=== PATIENT | female | born 1945 | race Caucasian/White ===

== ENCOUNTER 2018-10-20 14:07 | Inpatient (IN) | payer MEDICARE, BC ==
[2018-10-20 15:35] LABS: ADD UMIC NO; UR ASCORBIC ACID NEGATIVE (NEGATIVE); UR BILIRUBIN (Dip) NEGATIVE (NEGATIVE); UR BLOOD (Dip) NEGATIVE (NEGATIVE); UR CLARITY CLEAR (CLEAR); UR COLOR STRAW (YELLOW); UR GLUCOSE (Dip) NEGATIVE (NEGATIVE); UR KETONES (Dip) NEGATIVE (NEGATIVE); UR LEUKOCYTE ESTERASE (Dip) NEGATIVE Leu/ul (NEGATIVE); UR NITRITE (Dip) NEGATIVE (NEGATIVE); UR SPECIFIC GRAVITY (Dip) 1.008 (1.003-1.030); UR TOTAL PROTEIN (Dip) NEGATIVE (NEGATIVE); UR UROBILINOGEN (Dip) NEGATIVE (NEGATIVE)
[2018-10-20] MEDS ORDERED: LACTULOSE 30ML CUP PO (16:00)
[2018-10-20] MEDS: SPIRONOLACTONE 50 MG TAB PO (18:41)
[2018-10-20] MEDS: LEVETIRACETAM 500 MG TAB PO (20:42)
[2018-10-20] MEDS: DEXAMETHASONE 2 MG TAB PO (20:42)
[2018-10-20] MEDS: DOCUSATE SODIUM 100 MG CAP PO (20:42)
[2018-10-20] MEDS: GABAPENTIN 400 MG CAP PO (20:42)
[2018-10-21] MEDS: SPIRONOLACTONE 50 MG TAB PO ×2 (06:46→20:13)
[2018-10-21 07:17] LABS: ADD MAN DIFF? NO
[2018-10-21 07:20] LABS: WHITE BLOOD COUNT 12.5 10^3/ul (4.8-10.8)
[2018-10-21 07:20] LABS: BASOPHILS % 0.2 % (0.0-2.0); EOSINOPHILS % 0.2 % (0.0-7.0); HEMATOCRIT 47.1 % (37.0-47.0); LYMPHOCYTES # 1.9 10^3/ul (0.8-2.9); LYMPHOCYTES % 15.6 % (15.0-51.0); MEAN CORPUSCULAR HEMOGLOBIN 31.1 pg (29.0-33.0); MEAN CORPUSCULAR VOLUME 91.5 fl (82.0-101.0); MEAN PLATELET VOLUME 9.2 fl (7.4-10.4); MONOCYTE # 0.7 10^3/ul (0.3-0.9); MONOCYTES % 5.3 % (0.0-11.0); NEUTROPHIL # 9.6 10^3/ul (1.6-7.5); NEUTROPHILS % 76.7 % (39.0-77.0); PLATELET COUNT 300 10^3/UL (140-415); RED BLOOD COUNT 5.15 10^6/ul (4.20-5.40); RED CELL DISTRIBUTION WIDTH 12.8 % (11.5-14.5)
[2018-10-21 07:51] LABS: ALANINE AMINOTRANSFERASE 44 IU/L (13-69); ALBUMIN 4.1 g/dl (3.3-4.9); ALBUMIN/GLOBULIN RATIO 1.51; ALKALINE PHOSPHATASE 55 IU/L (42-121); ANION GAP 13 (5-13); ASPARTATE AMINO TRANSFERASE 30 IU/L (15-46); BILIRUBIN,INDIRECT 1.1 mg/dl (0-1.1); BILIRUBIN,TOTAL 1.1 mg/dl (0.2-1.3); BLOOD UREA NITROGEN 29 mg/dl (7-20); CALCIUM 9.7 mg/dl (8.4-10.2); CARBON DIOXIDE 30 mmol/L (21-31); CHLORIDE 93 mmol/L (97-110); CREATININE 0.95 mg/dl (0.44-1.00); GLUCOSE 99 mg/dl (70-220); POTASSIUM 4.5 mmol/L (3.5-5.1); SODIUM 136 mmol/L (135-144); TOTAL PROTEIN 6.8 g/dl (6.1-8.1)
[2018-10-21] MEDS: ACETAMINOPHEN 325 MG TAB PO ×2 (08:13→19:22)
[2018-10-21] MEDS ORDERED: FAMOTIDINE 20 MG TAB PO ×2 (09:00→09:30)
[2018-10-21] MEDS: FAMOTIDINE 20 MG TAB PO ×2 (09:39→20:13)
[2018-10-21] MEDS: DEXAMETHASONE 2 MG TAB PO ×2 (09:39→20:13)
[2018-10-21] MEDS: LEVETIRACETAM 500 MG TAB PO ×2 (09:40→20:13)
[2018-10-21] MEDS: METOPROLOL (XL) 50 MG TAB PO (09:40)
[2018-10-21] MEDS: SENNA TAB PO (09:40)
[2018-10-21] MEDS: GABAPENTIN 400 MG CAP PO ×2 (09:41→20:13)
[2018-10-21] MEDS: DOCUSATE SODIUM 100 MG CAP PO ×2 (09:41→20:13)
[2018-10-21] MEDS: FUROSEMIDE 40 MG TAB PO (09:41)
[2018-10-21] MEDS: TRINTELLIX 10 MG PO (09:41)
[2018-10-21] MEDS: ANASTROZOLE 1 MG TAB PO (09:46)
[2018-10-21] MEDS: ENOXAPARIN 40 MG/0.4 ML SYG SC (09:48)
[2018-10-22 06:13] LABS: ADD MAN DIFF? NO
[2018-10-22 06:14] LABS: WHITE BLOOD COUNT 12.4 10^3/ul (4.8-10.8)
[2018-10-22 06:14] LABS: BASOPHILS % 0.1 % (0.0-2.0); EOSINOPHILS % 0.1 % (0.0-7.0); HEMATOCRIT 44.4 % (37.0-47.0); HEMOGLOBIN 15.4 g/dl (12.0-16.0); LYMPHOCYTES # 1.1 10^3/ul (0.8-2.9); LYMPHOCYTES % 8.5 % (15.0-51.0); MEAN CORPUSCULAR HEMOGLOBIN 31.5 pg (29.0-33.0); MEAN CORPUSCULAR HGB CONC 34.7 g/dl (32.0-37.0); MEAN CORPUSCULAR VOLUME 90.8 fl (82.0-101.0); MEAN PLATELET VOLUME 8.8 fl (7.4-10.4); MONOCYTE # 0.5 10^3/ul (0.3-0.9); MONOCYTES % 4.2 % (0.0-11.0); NEUTROPHIL # 10.7 10^3/ul (1.6-7.5); NEUTROPHILS % 85.7 % (39.0-77.0); PLATELET COUNT 231 10^3/UL (140-415); RED BLOOD COUNT 4.89 10^6/ul (4.20-5.40); RED CELL DISTRIBUTION WIDTH 12.9 % (11.5-14.5)
[2018-10-22] MEDS: SPIRONOLACTONE 50 MG TAB PO ×2 (06:19→17:03)
[2018-10-22 06:48] LABS: ANION GAP 9 (5-13); BLOOD UREA NITROGEN 30 mg/dl (7-20); CALCIUM 9.4 mg/dl (8.4-10.2); CARBON DIOXIDE 29 mmol/L (21-31); CHLORIDE 94 mmol/L (97-110); CREATININE 0.82 mg/dl (0.44-1.00); GLUCOSE 102 mg/dl (70-220); MAGNESIUM 2.4 mg/dl (1.7-2.5); PHOSPHORUS 3.7 mg/dl (2.5-4.9); POTASSIUM 4.4 mmol/L (3.5-5.1); SODIUM 132 mmol/L (135-144)
[2018-10-22] MEDS: SENNA TAB PO (08:35)
[2018-10-22] MEDS: DOCUSATE SODIUM 100 MG CAP PO ×2 (08:36→20:23)
[2018-10-22] MEDS: FUROSEMIDE 40 MG TAB PO (08:37)
[2018-10-22] MEDS: LEVETIRACETAM 500 MG TAB PO ×2 (08:37→20:14)
[2018-10-22] MEDS: DEXAMETHASONE 2 MG TAB PO ×2 (08:37→20:14)
[2018-10-22] MEDS: GABAPENTIN 400 MG CAP PO ×2 (08:40→20:14)
[2018-10-22] MEDS: TRINTELLIX 10 MG PO (08:40)
[2018-10-22] MEDS: ENOXAPARIN 40 MG/0.4 ML SYG SC (08:41)
[2018-10-22] MEDS: METOPROLOL (XL) 50 MG TAB PO (09:00)
[2018-10-22] MEDS: ANASTROZOLE 1 MG TAB PO (09:20)
[2018-10-22] MEDS: FAMOTIDINE 20 MG TAB PO ×2 (09:23→20:14)
[2018-10-22] MEDS: ACETAMINOPHEN 325 MG TAB PO (20:23)
[2018-10-23] MEDS: SPIRONOLACTONE 50 MG TAB PO ×2 (06:10→18:00)
[2018-10-23] MEDS: LEVETIRACETAM 500 MG TAB PO ×2 (09:08→20:41)
[2018-10-23] MEDS: SENNA TAB PO (09:09)
[2018-10-23] MEDS: DEXAMETHASONE 2 MG TAB PO ×2 (09:10→20:41)
[2018-10-23] MEDS: FAMOTIDINE 20 MG TAB PO ×2 (09:10→20:42)
[2018-10-23] MEDS: DOCUSATE SODIUM 100 MG CAP PO ×2 (09:10→20:41)
[2018-10-23] MEDS: GABAPENTIN 400 MG CAP PO ×2 (09:10→20:42)
[2018-10-23] MEDS: FUROSEMIDE 40 MG TAB PO (09:15)
[2018-10-23] MEDS: METOPROLOL (XL) 50 MG TAB PO (09:16)
[2018-10-23] MEDS: TRINTELLIX 10 MG PO (09:16)
[2018-10-23] MEDS: ENOXAPARIN 40 MG/0.4 ML SYG SC (09:20)
[2018-10-23] MEDS: ANASTROZOLE 1 MG TAB PO (09:21)
[2018-10-23] MEDS: ACETAMINOPHEN 325 MG TAB PO (20:42)
[2018-10-23 22:16] LABS: TIME 2155
[2018-10-23 22:17] LABS: SITE Right Upper Forearm
[2018-10-24] MEDS: SPIRONOLACTONE 50 MG TAB PO ×2 (06:38→18:11)
[2018-10-24 06:40] LABS: ADD MAN DIFF? NO
[2018-10-24 06:46] LABS: BASOPHILS % 0.3 % (0.0-2.0); EOSINOPHILS % 0.1 % (0.0-7.0); HEMATOCRIT 44.9 % (37.0-47.0); HEMOGLOBIN 15.5 g/dl (12.0-16.0); LYMPHOCYTES # 1.3 10^3/ul (0.8-2.9); LYMPHOCYTES % 13.4 % (15.0-51.0); MEAN CORPUSCULAR HEMOGLOBIN 31.3 pg (29.0-33.0); MEAN CORPUSCULAR HGB CONC 34.5 g/dl (32.0-37.0); MEAN CORPUSCULAR VOLUME 90.7 fl (82.0-101.0); MONOCYTE # 0.4 10^3/ul (0.3-0.9); MONOCYTES % 4.4 % (0.0-11.0); NEUTROPHILS % 80.6 % (39.0-77.0); PLATELET COUNT 244 10^3/UL (140-415); RED BLOOD COUNT 4.95 10^6/ul (4.20-5.40); RED CELL DISTRIBUTION WIDTH 12.6 % (11.5-14.5)
[2018-10-24 06:46] LABS: WHITE BLOOD COUNT 9.9 10^3/ul (4.8-10.8)
[2018-10-24 07:35] LABS: ANION GAP 12 (5-13); BLOOD UREA NITROGEN 29 mg/dl (7-20); CALCIUM 9.5 mg/dl (8.4-10.2); CARBON DIOXIDE 27 mmol/L (21-31); CHLORIDE 93 mmol/L (97-110); CREATININE 0.81 mg/dl (0.44-1.00); GLUCOSE 103 mg/dl (70-220); MAGNESIUM 2.4 mg/dl (1.7-2.5); PHOSPHORUS 3.3 mg/dl (2.5-4.9); POTASSIUM 4.4 mmol/L (3.5-5.1); SODIUM 132 mmol/L (135-144)
[2018-10-24] MEDS: LEVETIRACETAM 500 MG TAB PO ×2 (10:07→20:54)
[2018-10-24] MEDS: FUROSEMIDE 40 MG TAB PO (10:07)
[2018-10-24] MEDS: SENNA TAB PO (10:07)
[2018-10-24] MEDS: DOCUSATE SODIUM 100 MG CAP PO ×2 (10:07→20:53)
[2018-10-24] MEDS: DEXAMETHASONE 2 MG TAB PO ×2 (10:08→20:53)
[2018-10-24] MEDS: FAMOTIDINE 20 MG TAB PO ×2 (10:08→20:54)
[2018-10-24] MEDS: GABAPENTIN 400 MG CAP PO ×2 (10:08→20:54)
[2018-10-24] MEDS: METOPROLOL (XL) 50 MG TAB PO (10:09)
[2018-10-24] MEDS: TRINTELLIX 10 MG PO (10:09)
[2018-10-24] MEDS: ANASTROZOLE 1 MG TAB PO (10:18)
[2018-10-24] MEDS: ENOXAPARIN 40 MG/0.4 ML SYG SC (10:19)
[2018-10-24] MEDS: ACETAMINOPHEN 325 MG TAB PO (20:54)
[2018-10-25] MEDS: SPIRONOLACTONE 50 MG TAB PO ×2 (05:27→17:46)
[2018-10-25] MEDS: LEVETIRACETAM 500 MG TAB PO ×2 (09:21→21:39)
[2018-10-25] MEDS: GABAPENTIN 400 MG CAP PO ×2 (09:21→21:39)
[2018-10-25] MEDS: METOPROLOL (XL) 50 MG TAB PO (09:22)
[2018-10-25] MEDS: DEXAMETHASONE 2 MG TAB PO ×2 (09:22→21:39)
[2018-10-25] MEDS: DOCUSATE SODIUM 100 MG CAP PO ×2 (09:22→21:39)
[2018-10-25] MEDS: SENNA TAB PO (09:22)
[2018-10-25] MEDS: FUROSEMIDE 40 MG TAB PO (09:22)
[2018-10-25] MEDS: FAMOTIDINE 20 MG TAB PO ×2 (09:22→21:39)
[2018-10-25] MEDS: ANASTROZOLE 1 MG TAB PO (09:23)
[2018-10-25] MEDS: TRINTELLIX 10 MG PO (09:23)
[2018-10-25] MEDS: ENOXAPARIN 40 MG/0.4 ML SYG SC (09:24)
[2018-10-25] MEDS ORDERED: ONDANSETRON (ODT) 4 MG TAB ODT (11:00)
[2018-10-25] MEDS: ACETAMINOPHEN 325 MG TAB PO (21:40)
[2018-10-25 22:01] LABS: FORTY EIGHT HOUR READING 0 mm (0-9)
[2018-10-26] MEDS: SPIRONOLACTONE 50 MG TAB PO ×2 (06:19→17:25)
[2018-10-26] MEDS: SENNA TAB PO (09:12)
[2018-10-26] MEDS: DOCUSATE SODIUM 100 MG CAP PO ×2 (09:12→20:15)
[2018-10-26] MEDS: LEVETIRACETAM 500 MG TAB PO ×2 (09:13→20:15)
[2018-10-26] MEDS: DEXAMETHASONE 2 MG TAB PO ×2 (09:13→20:15)
[2018-10-26] MEDS: FUROSEMIDE 40 MG TAB PO (09:13)
[2018-10-26] MEDS: ANASTROZOLE 1 MG TAB PO (09:13)
[2018-10-26] MEDS: FAMOTIDINE 20 MG TAB PO ×2 (09:14→20:15)
[2018-10-26] MEDS: METOPROLOL (XL) 50 MG TAB PO (09:14)
[2018-10-26] MEDS: ENOXAPARIN 40 MG/0.4 ML SYG SC (09:15)
[2018-10-26] MEDS: TRINTELLIX 10 MG PO (09:15)
[2018-10-26] MEDS: GABAPENTIN 400 MG CAP PO ×2 (09:50→20:15)
[2018-10-26] MEDS: ACETAMINOPHEN 325 MG TAB PO (17:49)
[2018-10-26 22:32] LABS: SEVENTY TWO HOUR READING 0 mm (0-9)
[2018-10-27] MEDS: SPIRONOLACTONE 50 MG TAB PO ×2 (05:52→17:51)
[2018-10-27 06:54] LABS: ADD MAN DIFF? NO
[2018-10-27 07:02] LABS: WHITE BLOOD COUNT 6.3 10^3/ul (4.8-10.8)
[2018-10-27 07:02] LABS: BASOPHILS % 0.2 % (0.0-2.0); EOSINOPHILS % 0.3 % (0.0-7.0); HEMATOCRIT 43.1 % (37.0-47.0); HEMOGLOBIN 14.5 g/dl (12.0-16.0); LYMPHOCYTES # 1.2 10^3/ul (0.8-2.9); LYMPHOCYTES % 19.3 % (15.0-51.0); MEAN CORPUSCULAR HEMOGLOBIN 30.9 pg (29.0-33.0); MEAN CORPUSCULAR HGB CONC 33.6 g/dl (32.0-37.0); MEAN CORPUSCULAR VOLUME 91.9 fl (82.0-101.0); MEAN PLATELET VOLUME 8.9 fl (7.4-10.4); MONOCYTE # 0.3 10^3/ul (0.3-0.9); MONOCYTES % 5.2 % (0.0-11.0); NEUTROPHIL # 4.6 10^3/ul (1.6-7.5); NEUTROPHILS % 73.1 % (39.0-77.0); PLATELET COUNT 195 10^3/UL (140-415); RED BLOOD COUNT 4.69 10^6/ul (4.20-5.40); RED CELL DISTRIBUTION WIDTH 13.1 % (11.5-14.5)
[2018-10-27] MEDS: ANASTROZOLE 1 MG TAB PO ×2 (08:08→08:39)
[2018-10-27] MEDS: DEXAMETHASONE 2 MG TAB PO ×2 (08:08→20:05)
[2018-10-27] MEDS: METOPROLOL (XL) 50 MG TAB PO (08:08)
[2018-10-27] MEDS: DOCUSATE SODIUM 100 MG CAP PO ×2 (08:09→20:04)
[2018-10-27] MEDS: TRINTELLIX 10 MG PO (08:09)
[2018-10-27] MEDS: FAMOTIDINE 20 MG TAB PO ×2 (08:09→20:05)
[2018-10-27] MEDS: FUROSEMIDE 40 MG TAB PO (08:09)
[2018-10-27] MEDS: GABAPENTIN 400 MG CAP PO ×2 (08:09→20:05)
[2018-10-27] MEDS: SENNA TAB PO (08:09)
[2018-10-27] MEDS: LEVETIRACETAM 500 MG TAB PO ×2 (08:09→20:05)
[2018-10-27] MEDS: ENOXAPARIN 40 MG/0.4 ML SYG SC (08:10)
[2018-10-28] MEDS: SPIRONOLACTONE 50 MG TAB PO ×2 (05:45→16:51)
[2018-10-28] MEDS: ACETAMINOPHEN 325 MG TAB PO ×2 (05:52→21:49)
[2018-10-28] MEDS: TRINTELLIX 10 MG PO (08:40)
[2018-10-28] MEDS: DEXAMETHASONE 2 MG TAB PO ×2 (08:40→20:00)
[2018-10-28] MEDS: SENNA TAB PO (08:41)
[2018-10-28] MEDS: GABAPENTIN 400 MG CAP PO ×2 (08:41→20:00)
[2018-10-28] MEDS: FAMOTIDINE 20 MG TAB PO ×2 (08:41→20:00)
[2018-10-28] MEDS: LEVETIRACETAM 500 MG TAB PO ×2 (08:41→19:59)
[2018-10-28] MEDS: FUROSEMIDE 40 MG TAB PO (08:41)
[2018-10-28] MEDS: DOCUSATE SODIUM 100 MG CAP PO ×2 (08:41→19:59)
[2018-10-28] MEDS: ANASTROZOLE 1 MG TAB PO (08:43)
[2018-10-28] MEDS: ENOXAPARIN 40 MG/0.4 ML SYG SC (08:44)
[2018-10-28] MEDS: METOPROLOL (XL) 50 MG TAB PO (08:48)
[2018-10-28] MEDS: ONDANSETRON (ODT) 4 MG TAB ODT (16:50)
[2018-10-29] MEDS: SPIRONOLACTONE 50 MG TAB PO ×2 (06:28→17:23)
[2018-10-29 07:53] LABS: ANION GAP 11 (5-13); BLOOD UREA NITROGEN 29 mg/dl (7-20); CALCIUM 9.6 mg/dl (8.4-10.2); CARBON DIOXIDE 30 mmol/L (21-31); CHLORIDE 93 mmol/L (97-110); CREATININE 0.76 mg/dl (0.44-1.00); GLUCOSE 91 mg/dl (70-220); POTASSIUM 4.6 mmol/L (3.5-5.1); SODIUM 134 mmol/L (135-144)
[2018-10-29] MEDS: DEXAMETHASONE 2 MG TAB PO ×2 (08:55→20:16)
[2018-10-29] MEDS: GABAPENTIN 400 MG CAP PO ×2 (08:55→20:16)
[2018-10-29] MEDS: FAMOTIDINE 20 MG TAB PO ×2 (08:56→20:16)
[2018-10-29] MEDS: ANASTROZOLE 1 MG TAB PO (08:56)
[2018-10-29] MEDS: SENNA TAB PO (08:56)
[2018-10-29] MEDS: LEVETIRACETAM 500 MG TAB PO ×2 (08:56→20:16)
[2018-10-29] MEDS: DOCUSATE SODIUM 100 MG CAP PO ×2 (08:56→20:16)
[2018-10-29] MEDS: METOPROLOL (XL) 50 MG TAB PO (08:57)
[2018-10-29] MEDS: FUROSEMIDE 40 MG TAB PO (08:57)
[2018-10-29] MEDS: TRINTELLIX 10 MG PO (08:58)
[2018-10-29] MEDS: ENOXAPARIN 40 MG/0.4 ML SYG SC (08:59)
[2018-10-30] MEDS: MAGNESIUM HYDROXIDE 30ML CUP PO (00:18)
[2018-10-30] MEDS: SPIRONOLACTONE 50 MG TAB PO (05:57)
[2018-10-30] MEDS: TRINTELLIX 10 MG PO (08:35)
[2018-10-30] MEDS: LEVETIRACETAM 500 MG TAB PO (08:35)
[2018-10-30] MEDS: GABAPENTIN 400 MG CAP PO (08:35)
[2018-10-30] MEDS: DEXAMETHASONE 2 MG TAB PO (08:35)
[2018-10-30] MEDS: SENNA TAB PO (08:36)
[2018-10-30] MEDS: FAMOTIDINE 20 MG TAB PO (08:36)
[2018-10-30] MEDS: DOCUSATE SODIUM 100 MG CAP PO (08:36)
[2018-10-30] MEDS: ANASTROZOLE 1 MG TAB PO (08:37)
[2018-10-30] MEDS: ENOXAPARIN 40 MG/0.4 ML SYG SC (08:38)
[2018-10-30] MEDS: FUROSEMIDE 40 MG TAB PO (08:39)
[2018-10-30] MEDS: METOPROLOL (XL) 50 MG TAB PO (08:39)
== END 2018-10-30 11:50 | disposition home health service (06) | DRG 945 ==
LOC: VRC 14:07
PROC: F07Z5ZZ Bed Mobility Treatment (ICD-10-PCS; principal; 2018-10-20)
PROC: F08Z2ZZ Grooming/Personal Hygiene Treatment (ICD-10-PCS; 2018-10-20)
PROC: F06Z6ZZ Communicative/Cognitive Integration Skills Treatment (ICD-10-PCS; 2018-10-20)
DX: G89.18 Other acute postprocedural pain (principal); C79.31 Secondary malignant neoplasm of brain; E87.1 Hypo-osmolality and hyponatremia; C50.919 Malignant neoplasm of unspecified site of unspecified female breast; M79.7 Fibromyalgia; G62.9 Polyneuropathy, unspecified; I10 Essential (primary) hypertension; Z98.890 Other specified postprocedural states; Z85.3 Personal history of malignant neoplasm of breast; G40.909 Epilepsy, unspecified, not intractable, without status epilepticus; F06.31 Mood disorder due to known physiological condition with depressive features; F06.8 Other specified mental disorders due to known physiological condition
CPT/HCPCS: 80048; 80053; 81003; 83735; 84100; 85025; 86580; 87081; 87086; 92507; 92523; 97110; 97112; 97116; 97163; 97167; 97530; 97535